=== PATIENT | female | born 1965 | race Caucasian/White ===

== ENCOUNTER 2025-07-11 09:02 | Outpatient (CLI) | payer OTHER ==
[2025-07-11] MEDS ORDERED: Iopamidol 370 76% 100 ML VIAL ONE (10:31)
== END 2025-07-11 09:03 | disposition home or self-care (01) ==
LOC: CSHCT 09:02
PROVIDERS: ATTEND Specialist
DX: I73.9 Peripheral vascular disease, unspecified (principal); K80.20 Calculus of gallbladder without cholecystitis without obstruction; E27.8 Other specified disorders of adrenal gland
CPT/HCPCS: 75635

== ENCOUNTER 2025-07-17 08:51 | Inpatient (IN) | payer SELFPAY ==
[2025-07-17 09:37] LABS: #Basophils 0.03 10x3/uL (0.0-0.2); #Eosinophils 0.11 10x3/uL (0.0-0.5); #Monocytes 0.53 10x3/uL (0.0-1.1); #Neutrophils 4.11 10x3/uL (1.5-8.4); %Basophils 0.5 % (0.0-2.0); %Eosinophils 1.7 % (0.0-6.0); %Lymphocytes 24.5 % (18.0-47.0); %Monocytes 8.3 % (0.0-10.0); %Neutrophils 64.4 % (40.0-75.0); Hematocrit 36.7 % (34.9-44.5); Hemoglobin 11.7 g/dL (12.0-15.5); Mean Corpuscular Hemoglobin 28.5 pg (27.0-33.0); Mean Corpuscular Volume 89.3 fL (81.6-98.3); Platelet Count 300 10x3/uL (150-450); Red Blood Cell (RBC) Count 4.11 10x6/uL (3.90-5.03); White Blood Cell (WBC) Count 6.38 10x3/uL (3.5-10.5)
[2025-07-17 09:52] LABS: ALT (SGPT) 31 U/L (Less than 34); AST (SGOT) 22 U/L (11-34); Albumin 4.2 g/dL (3.1-4.5); Alkaline Phosphatase 69 U/L (40-110); Anion Gap 14 mmol/L (10-20); BUN (Urea Nitrogen) 17 mg/dL (9.8-20.1); Bilirubin, Total 0.6 mg/dL (0.3-1.2); Calc. Creatinine Clearance 0 mL/min (70-130); Calcium 9.7 mg/dL (7.8-10.44); Carbon Dioxide 26 mmol/L (22-29); Chloride 105 mmol/L (98-107); Globulin 3.9 g/dL (2.4-3.5); Glucose 98 mg/dL (70-105); Potassium 3.8 mmol/L (3.5-5.1); Sodium 141 mmol/L (136-145)
[2025-07-17 09:58] LABS: Troponin I Less than 0.010 ng/mL (< 0.028)
[2025-07-17] MEDS ORDERED: Nitroglycerin 0.4 MG TAB 1 EACH ONE (10:07)
[2025-07-17] MEDS ORDERED: Ondansetron PF 4 MG/2 ML Vial IVP PRN (11:03)
[2025-07-17] MEDS ORDERED: Senokot S 8.6-50 MG TAB PO PRN (11:03)
[2025-07-17] MEDS ORDERED: Acetaminophen 325 MG TAB PO PRN (11:03)
[2025-07-17] MEDS ORDERED: Nitroglycerin 0.4 MG TAB (25 Tab Bottle) SL PRN (11:05)
[2025-07-17 12:01] LABS: Troponin I Less than 0.010 ng/mL (< 0.028)
[2025-07-17 14:38] LABS: Troponin I Less than 0.010 ng/mL (< 0.028)
[2025-07-17 16:58] VITALS: BMI 30.2
[2025-07-17] MEDS: Melatonin 3 MG TAB PO PRN (21:23)
[2025-07-17] MEDS ORDERED: Communication Order-Pharmacy FS SCH (23:15)
[2025-07-18 04:03] LABS: #Basophils 0.03 10x3/uL (0.0-0.2); #Eosinophils 0.13 10x3/uL (0.0-0.5); #Monocytes 0.50 10x3/uL (0.0-1.1); #Neutrophils 3.69 10x3/uL (1.5-8.4); %Basophils 0.5 % (0.0-2.0); %Eosinophils 2.3 % (0.0-6.0); %Lymphocytes 24.3 % (18.0-47.0); %Monocytes 8.7 % (0.0-10.0); %Neutrophils 63.9 % (40.0-75.0); Hematocrit 34.1 % (34.9-44.5); Hemoglobin 10.8 g/dL (12.0-15.5); Mean Corpuscular Hemoglobin 28.3 pg (27.0-33.0); Mean Corpuscular Volume 89.5 fL (81.6-98.3); Platelet Count 257 10x3/uL (150-450); Red Blood Cell (RBC) Count 3.81 10x6/uL (3.90-5.03); White Blood Cell (WBC) Count 5.77 10x3/uL (3.5-10.5)
[2025-07-18 04:21] LABS: Anion Gap 15 mmol/L (10-20); BUN (Urea Nitrogen) 19 mg/dL (9.8-20.1); Calc. Creatinine Clearance 101 mL/min (70-130); Calcium 8.8 mg/dL (7.8-10.44); Carbon Dioxide 23 mmol/L (22-29); Cardiac Risk 4.8 (Less than 4.5); Chloride 107 mmol/L (98-107); Cholesterol 150 mg/dl (< 200 Desired); Glucose 160 mg/dL (70-105); HDL Cholesterol 31 mg/dL (>60 Neg Risk); LDL Cholesterol, Calculated 91 mg/dL; Potassium 3.4 mmol/L (3.5-5.1); Sodium 142 mmol/L (136-145); Triglycerides 142 mg/dL (Less than 150)
[2025-07-18] MEDS: Aspirin Chewable 81 MG TAB PO SCH (05:26)
[2025-07-18] MEDS ORDERED: Lidocaine 1% (PF) 30 ML VIAL ONE (07:03)
[2025-07-18] MEDS ORDERED: Nitroglycerin 50 MG/250 ML BOT 250 ML ONE (07:03)
[2025-07-18] MEDS ORDERED: Heparin 10,000 UNITS/ 10 ML VIAL ONE ×2 (07:04→09:25)
[2025-07-18] MEDS ORDERED: Enoxaparin 40 MG (0.4 mL) SYRINGE SC SCH (09:00)
[2025-07-18] MEDS ORDERED: TICAGRELOR 90 MG TABLET ONE (09:17)
[2025-07-18] MEDS ORDERED: Ondansetron PF 4 MG/2 ML Vial ONE (10:37)
[2025-07-18] MEDS ORDERED: Acetaminophen/Codeine 30-300mg Tablet PO PRN ×2 (10:58)
[2025-07-18] MEDS ORDERED: Iopamidol 300 61% 100 ML VIAL FS ONE (11:29)
[2025-07-18] MEDS ORDERED: Communication Order-Pharmacy FS SCH (21:30)
[2025-07-19 04:38] LABS: #Basophils 0.03 10x3/uL (0.0-0.2); #Eosinophils 0.13 10x3/uL (0.0-0.5); #Monocytes 0.53 10x3/uL (0.0-1.1); #Neutrophils 4.16 10x3/uL (1.5-8.4); %Basophils 0.5 % (0.0-2.0); %Eosinophils 2.1 % (0.0-6.0); %Lymphocytes 22.1 % (18.0-47.0); %Monocytes 8.5 % (0.0-10.0); %Neutrophils 66.6 % (40.0-75.0); Hematocrit 30.3 % (34.9-44.5); Hemoglobin 9.6 g/dL (12.0-15.5); Mean Corpuscular Hemoglobin 28.3 pg (27.0-33.0); Mean Corpuscular Volume 89.4 fL (81.6-98.3); Platelet Count 251 10x3/uL (150-450); Red Blood Cell (RBC) Count 3.39 10x6/uL (3.90-5.03); White Blood Cell (WBC) Count 6.24 10x3/uL (3.5-10.5)
[2025-07-19 04:50] LABS: Anion Gap 10 mmol/L (10-20); BUN (Urea Nitrogen) 10 mg/dL (9.8-20.1); Calc. Creatinine Clearance 111 mL/min (70-130); Calcium 8.7 mg/dL (7.8-10.44); Carbon Dioxide 25 mmol/L (22-29); Chloride 109 mmol/L (98-107); Glucose 145 mg/dL (70-105); Potassium 3.5 mmol/L (3.5-5.1); Sodium 140 mmol/L (136-145)
[2025-07-19] MEDS ORDERED: Nitroglycerin 50 MG/250 ML BOT 250 ML ONE (09:30)
[2025-07-19] MEDS ORDERED: Lidocaine 1% (PF) 30 ML VIAL ONE (09:30)
[2025-07-19] MEDS ORDERED: Heparin 10,000 UNITS/ 10 ML VIAL ONE ×2 (09:30→09:54)
[2025-07-19] MEDS ORDERED: PHENYLEPHRINE-NS 100 MCG/ML 10 ML SYRINGE ONE (09:30)
[2025-07-19] MEDS: TICAGRELOR 90 MG TABLET PO SCH (09:34)
[2025-07-19] MEDS ORDERED: Adenosine 6 mg (2 mL) VIAL ONE (11:36)
[2025-07-19] MEDS ORDERED: Iopamidol 300 61% 100 ML VIAL FS ONE (14:15)
[2025-07-20 04:07] LABS: #Basophils 0.03 10x3/uL (0.0-0.2); #Eosinophils 0.16 10x3/uL (0.0-0.5); #Monocytes 0.53 10x3/uL (0.0-1.1); #Neutrophils 4.11 10x3/uL (1.5-8.4); %Basophils 0.5 % (0.0-2.0); %Eosinophils 2.7 % (0.0-6.0); %Lymphocytes 18.8 % (18.0-47.0); %Monocytes 8.9 % (0.0-10.0); %Neutrophils 68.9 % (40.0-75.0); Hematocrit 27.9 % (34.9-44.5); Hemoglobin 8.8 g/dL (12.0-15.5); Mean Corpuscular Hemoglobin 28.3 pg (27.0-33.0); Mean Corpuscular Volume 89.7 fL (81.6-98.3); Platelet Count 212 10x3/uL (150-450); Red Blood Cell (RBC) Count 3.11 10x6/uL (3.90-5.03); White Blood Cell (WBC) Count 5.96 10x3/uL (3.5-10.5)
[2025-07-20 04:31] LABS: ALT (SGPT) 19 U/L (Less than 34); AST (SGOT) 25 U/L (11-34); Albumin 3.0 g/dL (3.1-4.5); Alkaline Phosphatase 55 U/L (40-110); Anion Gap 10 mmol/L (10-20); BUN (Urea Nitrogen) 9 mg/dL (9.8-20.1); Bilirubin, Total 0.7 mg/dL (0.3-1.2); Calc. Creatinine Clearance 112 mL/min (70-130); Calcium 8.3 mg/dL (7.8-10.44); Carbon Dioxide 23 mmol/L (22-29); Chloride 110 mmol/L (98-107); Globulin 3.0 g/dL (2.4-3.5); Glucose 132 mg/dL (70-105); Potassium 3.3 mmol/L (3.5-5.1); Sodium 140 mmol/L (136-145)
[2025-07-20] MEDS: Sertraline 25 MG TAB PO SCH (10:24)
[2025-07-20 12:10] VITALS: BP 150/69; TEMP 98.3
== END 2025-07-20 14:07 | disposition home or self-care (01) | DRG 324 ==
LOC: CSHERS 08:51 → CSHERHOLD 10:57 → CSHTELE 16:30
PROVIDERS: ADMIT Hospitalist; ATTEND Family Medicine
PROC: 02703DZ Dilation of Coronary Artery, One Artery with Intraluminal Device, Percutaneous Approach (ICD-10-PCS; principal; 2025-07-17)
PROC: 02F03ZZ Fragmentation in Coronary Artery, One Artery, Percutaneous Approach (ICD-10-PCS; 2025-07-17)
PROC: 02C03ZZ Extirpation of Matter from Coronary Artery, One Artery, Percutaneous Approach (ICD-10-PCS; 2025-07-17)
PROC: 047C3DZ Dilation of Right Common Iliac Artery with Intraluminal Device, Percutaneous Approach (ICD-10-PCS; 2025-07-17)
PROC: 04FC3ZZ Fragmentation of Right Common Iliac Artery, Percutaneous Approach (ICD-10-PCS; 2025-07-17)
PROC: 04FH3ZZ Fragmentation of Right External Iliac Artery, Percutaneous Approach (ICD-10-PCS; 2025-07-17)
PROC: 047C3ZZ Dilation of Right Common Iliac Artery, Percutaneous Approach (ICD-10-PCS; 2025-07-18)
PROC: 047H3ZZ Dilation of Right External Iliac Artery, Percutaneous Approach (ICD-10-PCS; 2025-07-18)
PROC: 02703ZZ Dilation of Coronary Artery, One Artery, Percutaneous Approach (ICD-10-PCS; 2025-07-18)
PROC: 4A023N7 Measurement of Cardiac Sampling and Pressure, Left Heart, Percutaneous Approach (ICD-10-PCS; 2025-07-18)
PROC: B31H1ZZ Fluoroscopy of Right Upper Extremity Arteries using Low Osmolar Contrast (ICD-10-PCS; 2025-07-18)
PROC: B41J1ZZ Fluoroscopy of Other Lower Arteries using Low Osmolar Contrast (ICD-10-PCS; 2025-07-18)
PROC: B4101ZZ Fluoroscopy of Abdominal Aorta using Low Osmolar Contrast (ICD-10-PCS; 2025-07-18)
DX: I25.110 Atherosclerotic heart disease of native coronary artery with unstable angina pectoris (principal); I10 Essential (primary) hypertension; E11.51 Type 2 diabetes mellitus with diabetic peripheral angiopathy without gangrene; Z86.73 Personal history of transient ischemic attack (TIA), and cerebral infarction without residual deficits; Z98.890 Other specified postprocedural states; Z98.51 Tubal ligation status; E78.5 Hyperlipidemia, unspecified; F41.9 Anxiety disorder, unspecified; Z88.2 Allergy status to sulfonamides; Z79.899 Other long term (current) drug therapy; Z79.84 Long term (current) use of oral hypoglycemic drugs; Z79.82 Long term (current) use of aspirin
CPT/HCPCS: 36140; 36415; 36416; 37220; 37222; 71045; 75710; 75736; 80048; 80053; 80061; 84484; 85025; 85347; 92920; 92933; 92972; 93005; 93010; 93458; 94760; 99152; 99153; C1725; C1760; C1761; C1769; C1874; C1887; C1894; C9602; C9765; J0153; J0461; J0583; J1644; J2250; J2405; J3010; J7030; Q9967

== ENCOUNTER 2025-10-24 14:00 | Outpatient (CLI) | payer OTHER | END 2025-10-24 14:01 | disposition home or self-care (01) | LOC: CSHCT 14:00 | PROVIDERS: ATTEND Nurse Practitioner Gerontology | DX: E27.8 Other specified disorders of adrenal gland (principal) | CPT/HCPCS: 74170 ==